=== PATIENT | male | born 1980 | race Caucasian/White ===

== ENCOUNTER 2022-03-22 17:49 | Inpatient (IN) | payer OTHER ==
[~2022-03-22] VITALS: Ht 193 cm; Wt 111.1 kg
[2022-03-22 18:57] LABS: HEMOGLOBIN 17.2 gm/dl (14.0-17.5); RED BLOOD COUNT 5.28 M/UL (4.20-5.50); WHITE BLOOD COUNT 8.6 K/UL (4.5-11.0)
[2022-03-22 19:25] LABS: BUN/CREATININE RATIO 20 (0-10)
[2022-03-23 08:38] LABS: BUN/CREATININE RATIO 21 (0-10)
[2022-03-23] MEDS ORDERED: BUSPIRONE HCL10 MG PO (12:09)
[2022-03-23] MEDS ORDERED: HYDROXYZINE HCL25 MG PO (12:10)
[2022-03-23] MEDS ORDERED: LISINOPRIL-HCT1 EACH PO (12:11)
[2022-03-23] MEDS ORDERED: SILDENAFIL20 MG PO (12:12)
--- NOTE | 2022-03-23 17:06 | NUR ---
heart catheterization consent signed
--- NOTE | 2022-03-23 17:06 | NUR ---
pt educated about leaving the floor to smoke and that telenetry was important. he verbalized understanding.
[2022-03-24 06:30] LABS: HEMOGLOBIN 15.6 gm/dl (14.0-17.5); RED BLOOD COUNT 4.84 M/UL (4.20-5.50); WHITE BLOOD COUNT 6.9 K/UL (4.5-11.0)
[2022-03-24 08:12] LABS: BUN/CREATININE RATIO 21 (0-10)
[2022-03-24] MEDS ORDERED: POTASSIUM CHLO20 ME1 PO (13:25)
[2022-03-24] MEDS ORDERED: LOPRESSOR 25 MG25 MG PO (13:25)
[2022-03-24] MEDS ORDERED: FUROSEMIDE40 MG PO (13:25)
[2022-03-24] MEDS ORDERED: LISINOPRIL5 MG PO (13:25)
== END 2022-03-24 18:30 | disposition home or self-care (01) | DRG 286 ==
LOC: ER1 17:49 → CDU 03-23 01:18 → MED SURG 4 03-23 13:16
PROVIDERS: Internal Medicine Cardiovascular Disease; Physician Assistant; ADMIT Internal Medicine
PROC: B24BZZZ Ultrasonography of Heart with Aorta (ICD-10-PCS; principal; 2022-03-24)
PROC: 4A023N7 Measurement of Cardiac Sampling and Pressure, Left Heart, Percutaneous Approach (ICD-10-PCS; 2022-03-24)
PROC: B2111ZZ Fluoroscopy of Multiple Coronary Arteries using Low Osmolar Contrast (ICD-10-PCS; 2022-03-24)
DX: I11.0 Hypertensive heart disease with heart failure (principal); I50.21 Acute systolic (congestive) heart failure; N13.30 Unspecified hydronephrosis; Z20.822 Contact with and (suspected) exposure to COVID-19; E87.6 Hypokalemia; I42.8 Other cardiomyopathies; F15.10 Other stimulant abuse, uncomplicated; F41.9 Anxiety disorder, unspecified; I08.1 Rheumatic disorders of both mitral and tricuspid valves; F17.210 Nicotine dependence, cigarettes, uncomplicated; I27.20 Pulmonary hypertension, unspecified; Z80.9 Family history of malignant neoplasm, unspecified; Z82.49 Family history of ischemic heart disease and other diseases of the circulatory system
CPT/HCPCS: ECHO; 0240U; 71045; 71260; 80048; 80053; 80061; 80307; 81001; 82150; 82550; 82553; 83036; 83605; 83690; 83880; 84439; 84443; 84484; 85025; 85379; 85610; 85730; 87040; 87086; 93005; 93306; 96372; 96376; 99152; 99153; C1725; C1769; C1894; G0378; J1644; J1650; J1885; J1940; J2250; J2270; J2405; J3010; J7040; Q9967